=== PATIENT | female | born 1940 | race Caucasian/White ===

== ENCOUNTER 2017-02-20 10:26 | Emergency (ER) | payer OTHER ==
[2017-02-20 10:36] VITALS: O2SAT 95
[2017-02-20] MEDS ORDERED: ACETAMINOPHEN 325 MG TAB PO ONE (11:26)
--- NOTE | 2017-02-20 11:26 | EDPHY ---
H & P Time Seen by Provider: 02/20/17 10:40 HPI/ROS: CHIEF COMPLAINT: Right-sided rib pain HISTORY OF PRESENT ILLNESS: 76-year-old female presents with right-sided rib pain. She was climbing down a ledge this morning, missed the step stool and slipped, falling onto her right side. She has right-sided rib pain, 3/10. No shortness of breath or abdominal pain. She is mainly concerned about her previous lumbar spine surgery, performed in October 2016. She has no lumbar pain. She also has an abrasion on her right forearm and right foot. She did not hit her head; no headache or neck pain. REVIEW OF SYSTEMS: Constitutional: No weakness Eyes: No visual changes or eye pain ENT: No dental trauma Neck:No pain or injury Respiratory: No shortness of breath Gastrointestinal: No abdominal pain, no vomiting Genitourinary: No hematuria Musculoskeletal: No joint pain Skin: No lacerations Neurological: No headache, no dizziness Past Medical/Surgical History: Lumbar surgery Social History: Lives in own home Smoking Status: Never smoked Physical Exam: General Appearance: Alert, no distress Head: Atraumatic Eyes: No conjunctival erythema, PERRLA, EOMI ENT, Mouth: no bony tenderness Neck: Nontender, range of motion without pain Respiratory: no anterior chest wall tenderness, lungs clear bilaterally Cardiovascular: Regular rate and rhythm Back: Small abrasion and tenderness under the right scapula, no midline tenderness Abdomen: Abdomen is soft and nontender Skin: No lacerations Extremities: Pelvis is stable and nontender; no extremity tenderness or deformity, right elbow/shoulder range of motion without pain Neurological: A&Ox3, normal motor function, normal sensory exam, cranial nerves intact Psychiatric: Mood and affect normal Constitutional: Initial Vital Signs Temperature (C) 36.5 C 02/20/17 10:30 Heart Rate 79 02/20/17 10:30 Respiratory Rate 20 02/20/17 10:30 Blood Pressure 138/84 H 02/20/17 10:30 O2 Sat (%) 95 02/20/17 10:30 O2 Delivery Mode Room Air Allergies/Adverse Reactions: No Known Allergies Allergy (Unverified 02/20/17 10:28) Home Medications: Medication Instructions Recorded Neurontin 02/20/17 buPROPion 02/20/17 Medical Decision Making - Diagnostics Imaging Results: Imaging Impressions Ribs w/Chest X-Ray 02/20/17 10:41 Impression: No displaced rib fracture identified. ED Course/Re-evaluation: This patient presents with right-sided rib pain. There is no evidence of fracture or pneumothorax on x-ray. In addition, there is no evidence of injury to her prior lumbar spine surgery. She was reassured. She will take Tylenol as needed for pain. Differential Diagnosis: Differential diagnosis includes though it is not limited to fracture, intracranial hemorrhage, pneumothorax, hemothorax, intra-abdominal hemorrhage. Departure - Departure Disposition: Home, Routine, Self-Care Clinical Impression: Contusion of right chest wall Qualifiers: Encounter type: initial encounter Qualified Code(s): S20.211A - Contusion of right front wall of thorax, initial encounter Condition: Good Instructions: Contusion in Adults (ED) Additional Instructions: Take Tylenol every 4 hours as needed for pain. Referrals: RAFFI CLEARY [Other] - As per Instructions
[2017-02-20 11:53] VITALS: BP 151/63; PULSE 69; RESP 16; TEMP 97.9
== END 2017-02-20 11:56 | disposition home or self-care (01) ==
DX: S20.211A Contusion of right front wall of thorax, initial encounter (principal); W17.89XA Other fall from one level to another, initial encounter; Y93.39 Activity, other involving climbing, rappelling and jumping off

== ENCOUNTER → 2017-03-07 | Outpatient (CLI) | payer OTHER | LOC: BMCIMAGING 14:26 | PROVIDERS: ATTEND Family Medicine | DX: M19.041 Primary osteoarthritis, right hand (principal) ==